=== PATIENT | male | born 1990 | race Caucasian/White ===

== ENCOUNTER 2017-09-17 16:30 | Emergency (ER) | payer MEDICAID ==
[2017-09-17] MEDS ORDERED: IBUPROFEN 800 MG TABLET PO STA (17:18)
--- NOTE | 2017-09-17 17:18 | ED Physician Documentation ---
PD HPI LOWER EXT INJURY - Stated complaint Stated Complaint: R ANKLE SWELLING - Chief complaint Chief Complaint: Ext Problem - History obtained from History obtained from: Patient - History of Present Illness PD HPI LOW EXT INJURY LOCATION: Right (Increasing right ankle pain, swelling, and redness for the last 2-3 days without specific injury, although he does note he stepped on a nail maybe 3 weeks ago. No fevers.) Review of Systems Constitutional: denies: Fever, Chills Ears: denies: Loss of hearing, Ear pain Nose: reports: Reviewed and negative Cardiac: reports: Reviewed and negative PD PAST MEDICAL HISTORY - Past Medical History Psych: Depression, Anxiety, ADD/ADHD - Past Surgical History Past Surgical History: No - Present Medications Home Medications: Ambulatory Orders Medication Instructions Recorded Confirmed Dextroamphetamine/Amphetamine 30 mg PO TID 09/22/15 09/22/15 [Adderall 30 mg Tablet] Cephalexin [Keflex] 500 mg PO QID #40 capsule 09/17/17 - Allergies Allergies/Adverse Reactions: Allergies Allergy/AdvReac Type Severity Reaction Status Date / Time No Known Drug Allergies Allergy Verified 09/17/17 16:34 - Social History Does the pt smoke?: Yes Smoking Status: Current every day smoker Does the pt drink ETOH?: No Does the pt have substance abuse?: No - POLST Patient has POLST: No PD ED PE NORMAL - Vitals Vital signs reviewed: Yes - General General: Alert and oriented X 3, No acute distress - Extremities Extremities: Other (He has cellulitis over the anterolateral right ankle, extending down to about the mortise and may be up for 5 cm from there. He does have pain with range of motion of the ankle, but not severe or consistent with septic joint. There is no redness or cellulitis of the bottom of the foot.) - Neuro Neuro: Alert and oriented X 3, Normal speech - Psych Psych: Normal mood, Normal affect Results - Vitals Vitals: Vital Signs - 24 hr 09/17/17 16:32 Temperature 36.2 C L Heart Rate 98 Respiratory 18 Rate Blood Pressure 125/71 O2 Saturation 100 Oxygen O2 Source Room air - Labs Labs: Laboratory Tests 09/17/17 09/17/17 17:30 17:30 WBC 9.9 RBC 4.53 L Hgb 13.5 L Hct 40.7 L MCV 89.9 MCH 29.8 MCHC 33.1 RDW 13.1 Plt Count 249 MPV 7.8 Neut # 7.2 H Lymph # 1.2 L [place] # 1.3 H Eos # 0.1 Baso # 0.1 Absolute Nucleated RBC 0.00 Nucleated RBC % 0.0 Sodium 134 L Potassium 4.2 Chloride 100 L Carbon Dioxide 27 Anion Gap 7.0 BUN 16 Creatinine 0.9 Estimated GFR (MDRD) 100 Glucose 95 Uric Acid 4.4 Calcium 8.8 Total Bilirubin 0.9 AST 20 ALT 25 Alkaline Phosphatase 87 C-Reactive Protein 1.0 Total Protein 7.7 Albumin 4.5 Globulin 3.2 Albumin/Globulin Ratio 1.4 Lipase < 10 L PD MEDICAL DECISION MAKING - ED course ED course: It appears to be simple right ankle cellulitis, gout is considered but his uric acid is low normal. Does not seem like a septic joint at this point. Departure - Departure Disposition: 01 Home, Self Care Clinical Impression: Cellulitis Qualifiers: Site of cellulitis: extremity Site of cellulitis of extremity: lower extremity Laterality: right Qualified Code(s): L03.115 - Cellulitis of right lower limb Condition: Good Record reviewed to determine appropriate education?: Yes Instructions: Cellulitis Dc Prescriptions: Cephalexin [Keflex] 500 mg PO QID #40 capsule Comments: Call your doctor to arrange a follow-up appointment, make the next available appointment. In the interim, return anytime if worse or if new symptoms develop.
[2017-09-17 17:42] LABS: BASOPHILS # (AUTO) 0.1 10^3/uL (0.0-0.1); BASOPHILS % (AUTO) 0.7 %; EOSINOPHILS # (AUTO) 0.1 10^3/uL (0.0-0.7); HGB - HEMOGLOBIN 13.5 g/dL (14.0-18.0); LYMPHOCYTES # (AUTO) 1.2 10^3/uL (1.5-3.5); MEAN CORPUSCULAR HEMOGLOBIN 29.8 pg (27.0-31.0); MEAN CORPUSCULAR HGB CONC 33.1 g/dL (32.0-36.0); MEAN CORPUSCULAR VOLUME 89.9 fL (80.0-94.0); MEAN PLATELET VOLUME 7.8 fL (7.4-11.4); MONOCYTES # (AUTO) 1.3 10^3/uL (0.0-1.0); MONOCYTES % (AUTO) 13.4 %; NEUTROPHILS # (AUTO) 7.2 10^3/uL (1.5-6.6); NEUTROPHILS % (AUTO) 72.9 %; PLT - PLATELET COUNT 249 10^3/uL (130-450); RED BLOOD COUNT 4.53 10^6/uL (4.70-6.10); RED CELL DISTRIBUTION WIDTH 13.1 % (12.0-15.0); WHITE BLOOD COUNT 9.9 x10^3/uL (4.8-10.8)
[2017-09-17 17:58] LABS: ALBUMIN 4.5 g/dL (3.2-5.5); ALBUMIN/GLOBULIN RATIO 1.4 (1.0-2.2); ALKALINE PHOSPHATASE 87 IU/L (42-121); ALT ALANINE AMINOTRANSFERASE 25 IU/L (10-60); AST ASPARTATE AMINOTRANSFERASE 20 IU/L (10-42); BILIRUBIN,TOTAL 0.9 mg/dL (0.2-1.0); BUN - BLOOD UREA NITROGEN 16 mg/dL (6-20); CALCIUM 8.8 mg/dL (8.5-10.3); CARBON DIOXIDE - CO2 27 mmol/L (21-32); CHLORIDE 100 mmol/L (101-111); CREATININE 0.9 mg/dL (0.6-1.2); GFR - MDRD 100 (>89); GLUCOSE 95 mg/dL (70-100); SODIUM 134 mmol/L (135-145); TOTAL PROTEIN 7.7 g/dL (6.7-8.2); URIC ACID 4.4 mg/dL (2.6-7.2)
[2017-09-17 18:00] LABS: LIPASE < 10 U/L (22-51)
[2017-09-17] MEDS ORDERED: ceFAZolin 1 GM VIAL IM STA (18:03)
[2017-09-17] MEDS ORDERED: WATER FOR INJECTION,STERILE 10 ML ONE (18:22)
[2017-09-17 18:24] VITALS: BP 112/65
== END 2017-09-17 18:30 | disposition home or self-care (01) ==
LOC: ED 16:30
DX: L03.115 Cellulitis of right lower limb (principal); F17.200 Nicotine dependence, unspecified, uncomplicated
CPT/HCPCS: 36415; 80053; 83690; 84550; 85025; 85651; 86140; 96372; 99283; A9270

== ENCOUNTER 2017-10-31 11:49 | Emergency (ER) | payer MEDICAID ==
[2017-10-31 12:13] LABS: BASOPHILS % (AUTO) 0.8 %; EOSINOPHILS # (AUTO) 0.1 10^3/uL (0.0-0.7); EOSINOPHILS % (AUTO) 2.2 %; HGB - HEMOGLOBIN 14.8 g/dL (14.0-18.0); LYMPHOCYTES # (AUTO) 0.9 10^3/uL (1.5-3.5); LYMPHOCYTES % (AUTO) 21.6 %; MEAN CORPUSCULAR HEMOGLOBIN 30.3 pg (27.0-31.0); MEAN CORPUSCULAR HGB CONC 34.2 g/dL (32.0-36.0); MEAN CORPUSCULAR VOLUME 88.7 fL (80.0-94.0); MEAN PLATELET VOLUME 7.9 fL (7.4-11.4); MONOCYTES % (AUTO) 22.7 %; NEUTROPHILS # (AUTO) 2.2 10^3/uL (1.5-6.6); NEUTROPHILS % (AUTO) 52.7 %; PLT - PLATELET COUNT 275 10^3/uL (130-450); RED BLOOD COUNT 4.88 10^6/uL (4.70-6.10); RED CELL DISTRIBUTION WIDTH 13.3 % (12.0-15.0); WHITE BLOOD COUNT 4.3 x10^3/uL (4.8-10.8)
[2017-10-31 12:25] LABS: ALBUMIN 4.2 g/dL (3.2-5.5); ALBUMIN/GLOBULIN RATIO 1.3 (1.0-2.2); BILIRUBIN,TOTAL 0.8 mg/dL (0.2-1.0); CREATININE 0.9 mg/dL (0.6-1.2); TOTAL PROTEIN 7.5 g/dL (6.7-8.2)
[2017-10-31 12:46] LABS: GLUCOSE, URINE (UA) NEGATIVE (NEGATIVE); KETONES,URINE (UA) TRACE mg/dL (NEGATIVE); LEUKOCYTE ESTERASE, URINE NEGATIVE (NEGATIVE); NITRITE,URINE NEGATIVE (NEGATIVE); OCCULT BLOOD,URINE NEGATIVE (NEGATIVE); PROTEIN,URINE NEGATIVE (NEGATIVE); UROBILINOGEN,URINE 1 (NORMAL) E.U./dL (NORMAL)
[2017-10-31 12:50] LABS: CLARITY,URINE CLEAR (CLEAR)
[2017-10-31 12:52] LABS: BILIRUBIN,URINE NEGATIVE (NEGATIVE); ICTOTEST,URINE NEGATIVE
[2017-10-31] MEDS ORDERED: MAG HYDROX/AL HYDROX/SIMETH 30 ML UDC PO STA (13:01)
[2017-10-31] MEDS ORDERED: SODIUM CHLORIDE 0.9% 1,000 ML IV ONE (13:01)
[2017-10-31] MEDS ORDERED: LIDOCAINE VISCOUS 2% 15 ML UDC MM STA (13:01)
--- NOTE | 2017-10-31 13:04 | ED Physician Documentation ---
PD HPI ABD PAIN - Stated complaint Stated Complaint: ABD PX - Chief complaint Chief Complaint: Abd Pain - History obtained from History obtained from: Patient - History of Present Illness Timing - onset: How many days ago (55) Timing - duration: Days (5) Timing - details: Abrupt onset, Still present, Waxing and waning Quality: Sharp, Fullness/distended, Pain Location: LUQ Improved by: Laying still Worsened by: Eating, Breathing, Position, Palpation Associated symptoms: Nausea, Vomiting, Diarrhea Similar symptoms before: Has not had sx before Recently seen: Emergency Dept - Additional information Additional information: 27-year-old previously well male who has recently been treated for cellulitis has developed acute left upper quadrant abdominal pain with some nausea about 5 days ago. He does acknowledge taking ibuprofen and taking this on an empty stomach as well. He describes the sensation as a feeling of fullness in the abdomen and pressure and not like he is full from eating. He has had some flow- through diarrhea with eating as well. Review of Systems Constitutional: denies: Fever Eyes: denies: Decreased vision Ears: denies: Ear pain Nose: reports: Rhinorrhea / runny nose, Congestion Throat: denies: Sore throat Cardiac: denies: Chest pain / pressure, Palpitations Respiratory: reports: Cough. denies: Dyspnea GI: reports: Abdominal Pain, Nausea, Vomiting, Diarrhea : denies: Dysuria, Frequency Skin: denies: Rash, Lesions Musculoskeletal: denies: Neck pain, Back pain, Extremity pain Neurologic: denies: Generalized weakness, Focal weakness, Numbness PD PAST MEDICAL HISTORY - Past Medical History Past Medical History: Yes Psych: Depression, Anxiety, ADD/ADHD - Past Surgical History Past Surgical History: No Ortho: ACL reconstruction - Present Medications Home Medications: Ambulatory Orders Medication Instructions Recorded Confirmed Dextroamphetamine/Amphetamine 30 mg PO TID 09/22/15 09/22/15 [Adderall 30 mg Tablet] Sucralfate [Carafate] 1 gm PO ACHS #30 tablet 10/31/17 - Allergies Allergies/Adverse Reactions: Allergies Allergy/AdvReac Type Severity Reaction Status Date / Time No Known Drug Allergies Allergy Verified 10/31/17 11:55 - Social History Does the pt smoke?: Yes Smoking Status: Current every day smoker Does the pt drink ETOH?: No Does the pt have substance abuse?: No - Immunizations Immunizations are current?: Yes - POLST Patient has POLST: No PD ED PE NORMAL - Vitals Vital signs reviewed: Yes (normal ) - General General: Alert and oriented X 3, No acute distress, Well developed/nourished - HEENT HEENT: Atraumatic, PERRL, EOMI - Neck Neck: Supple, no meningeal sign, No bony TTP - Cardiac Cardiac: RRR, No murmur - Respiratory Respiratory: No respiratory distress, Clear bilaterally - Abdomen Abdomen: Soft, Other (mild left upper quadrant tenderness without guarding or rebound. ) - Back Back: No CVA TTP, No spinal TTP - Derm Derm: Normal color, Warm and dry, No rash - Extremities Extremities: No deformity, No edema - Neuro Neuro: No motor deficit, No sensory deficit Eye Opening: Spontaneous Motor: Obeys Commands Verbal: Oriented GCS Score: 15 - Psych Psych: Normal mood, Normal affect Results - Vitals Vitals: Vital Signs - 24 hr 10/31/17 11:51 Temperature 36.4 C L Heart Rate 94 Respiratory 16 Rate Blood Pressure 128/70 O2 Saturation 99 Oxygen O2 Source Room air - Labs Labs: Laboratory Tests 10/31/17 10/31/17 10/31/17 12:06 12:06 12:40 WBC 4.3 L RBC 4.88 Hgb 14.8 Hct 43.3 MCV 88.7 MCH 30.3 MCHC 34.2 RDW 13.3 Plt Count 275 MPV 7.9 Neut # 2.2 Lymph # 0.9 L [place] # 1.0 Eos # 0.1 Baso # 0.0 Absolute Nucleated RBC 0.00 Nucleated RBC % 0.0 Sodium 137 Potassium 3.5 Chloride 100 L Carbon Dioxide 29 Anion Gap 8.0 BUN 12 Creatinine 0.9 Estimated GFR (MDRD) 100 Glucose 84 Calcium 9.0 Total Bilirubin 0.8 AST 37 ALT 27 Alkaline Phosphatase 78 Total Protein 7.5 Albumin 4.2 Globulin 3.3 Albumin/Globulin Ratio 1.3 Lipase 15 L Urine Color DARK YELLOW Urine Clarity CLEAR Urine pH 6.0 Ur Specific [place] 1.020 Urine Protein NEGATIVE Urine Glucose (UA) NEGATIVE Urine Ketones TRACE Urine Occult Blood NEGATIVE Urine Nitrite NEGATIVE Urine Bilirubin NEGATIVE Urine Urobilinogen 1 (NORMAL) Ur Leukocyte Esterase NEGATIVE Ur Microscopic Review NOT INDICATED Urine Culture Comments NOT INDICATED Procedures - IVC sono (time) 1300 Bedside IVC sono: IVC measures (cm) (1.24), IVC collapsed c insp (cm) (complete) , Dehydration (est 1 liter deficit) PD MEDICAL DECISION MAKING - ED course Complexity details: reviewed old records, reviewed results, re-evaluated patient , considered differential, d/w patient, d/w family ED course: 27-year-old male with left upper quadrant abdominal pain likely has gastritis. He has taken ibuprofen on an empty stomach and he has typical pain from this. The patient has relief of his pain with the use of viscous lidocaine and Mylanta. IV saline is given for dehydration as well as Protonix. We will treat him for gastritis. Departure - Departure Disposition: Home, Self Care Clinical Impression: Gastritis Qualifiers: Gastritis type: unspecified gastritis Chronicity: acute Gastritis bleeding: without bleeding Qualified Code(s): K29.00 - Acute gastritis without bleeding Condition: Stable Instructions: ED PUD Vs Gastritis Follow-Up: Robyn Moser ARNP [Primary Care Provider] - Prescriptions: Sucralfate [Carafate] 1 gm PO ACHS #30 tablet Comments: Today it appears your abdominal pain is related to gastritis or an inflammation of the stomach. This is likely due to the use of ibuprofen. Discontinue the use of ibuprofen or alcohol and start Pepcid AC or Tagamet on a regular basis for about 10 days. In addition take the Carafate regularly for the next week.
[2017-10-31] MEDS ORDERED: PANTOPRAZOLE 40 MG VIAL IVP STA (13:26)
[2017-10-31 13:57] VITALS: BP 132/78
== END 2017-10-31 13:57 | disposition home or self-care (01) ==
LOC: ED 11:49
DX: K29.00 Acute gastritis without bleeding (principal); E86.0 Dehydration; F17.200 Nicotine dependence, unspecified, uncomplicated
CPT/HCPCS: 36415; 80053; 81003; 83690; 85025; 96374; 99283; 99284; A9270; 81001; 87086

== ENCOUNTER 2018-04-21 16:09 | Emergency (ER) | payer MEDICAID ==
[2018-04-21 16:16] VITALS: BP 125/71
--- NOTE | 2018-04-21 17:05 | XRAY Report ---
Reason: fall, previous injury Procedure Date: 04/21/2018 Accession Number: [id number] / [id number] Procedure: XR - Knee 3 View LT CPT Code: FULL RESULT: EXAM: LEFT KNEE RADIOGRAPHY EXAM DATE: 04/21/2018 04:39 PM. CLINICAL HISTORY: Fall, previous injury. COMPARISON: None. TECHNIQUE: 3 views. FINDINGS: Bones: Normal. No fractures or bone lesions. Joints: Suprapatellar effusion. Slight lateral patellar tilt. Otherwise normal alignment. Soft Tissues: Normal. No soft tissue swelling. IMPRESSION: 1. No acute bony abnormality. 2. Small suprapatellar effusion. RADIA
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
== END 2018-04-21 17:45 | disposition home or self-care (01) ==
LOC: ED 16:09
DX: S83.92XA Sprain of unspecified site of left knee, initial encounter (principal); F17.200 Nicotine dependence, unspecified, uncomplicated; W10.9XXA Fall (on) (from) unspecified stairs and steps, initial encounter; X50.0XXA Overexertion from strenuous movement or load, initial encounter; X50.1XXA Overexertion from prolonged static or awkward postures, initial encounter
CPT/HCPCS: 99282; 99283

== ENCOUNTER 2019-01-24 19:44 | Outpatient (CLI) | payer OTHER, MEDICAID | END 2019-01-24 19:45 | disposition critical access hospital (66) | LOC: EMS 19:44 | PROVIDERS: ATTEND Surgery | DX: S81.012A Laceration without foreign body, left knee, initial encounter (principal); S09.90XA Unspecified injury of head, initial encounter; V43.53XA Car driver injured in collision with pick-up truck in traffic accident, initial encounter; Y92.410 Unspecified street and highway as the place of occurrence of the external cause | CPT/HCPCS: A0425; A0429; A0999 ==

== ENCOUNTER 2019-01-24 20:08 | Emergency (ER) | payer OTHER, MEDICAID ==
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
[2019-01-24] MEDS ORDERED: IBUPROFEN 600 MG TABLET PO STA (20:33)
[2019-01-24] MEDS ORDERED: ACETAMINOPHEN 325 MG TABLET PO STA (20:34)
[2019-01-24] MEDS ORDERED: LIDOCAINE-EPINEPH-TETRACAINE 3 ML SYRINGE TOP STA (20:34)
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
[2019-01-24 22:03] VITALS: BP 130/70
== END 2019-01-24 22:08 | disposition home or self-care (01) ==
LOC: EDUNIT# → ED 20:08
DX: S81.011A Laceration without foreign body, right knee, initial encounter (principal); S80.00XA Contusion of unspecified knee, initial encounter; S00.81XA Abrasion of other part of head, initial encounter; V43.52XA Car driver injured in collision with other type car in traffic accident, initial encounter; W22.11XA Striking against or struck by driver side automobile airbag, initial encounter; Y92.410 Unspecified street and highway as the place of occurrence of the external cause; F17.200 Nicotine dependence, unspecified, uncomplicated
CPT/HCPCS: 12002; 73562; 99283; 99284; A9270

== ENCOUNTER 2020-03-03 08:00 | Outpatient (CLI) | payer MEDICAID, OTHER | END 2020-03-03 23:59 | disposition home or self-care (01) | LOC: LAB.R 08:00 | PROVIDERS: ATTEND Registered Nurse | DX: Z20.2 Contact with and (suspected) exposure to infections with a predominantly sexual mode of transmission (principal) | CPT/HCPCS: 81599; 87491; 87591 ==

== ENCOUNTER 2023-05-25 15:00 | Outpatient (CLI) | payer MEDICAID, OTHER ==
[2023-05-27 07:10] LABS: HSV 2 IGG TYPE SPEC <0.91 index (0.00-0.90)
== END 2023-05-25 15:15 | disposition home or self-care (01) ==
LOC: LAB.N 15:00
PROVIDERS: ATTEND Physician Assistant Medical
DX: R21 Rash and other nonspecific skin eruption (principal)
CPT/HCPCS: 36415; 86695; 86696; 87255

== ENCOUNTER 2023-12-06 23:31 | Emergency (ER) | payer MEDICAID ==
[2023-12-07] MEDS: lidocaine 1% 20 ML MDV SUBQ ONE (01:13)
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
[2023-12-07] MEDS: BACITRACIN ZINC OINT 1 PACKET TOP STA (01:39)
[2023-12-07] MEDS: HYDROcod/ACETAM 5/325 MG TABLET PO STA (01:40)
[2023-12-07] MEDS: SULFAMETH/TRIMETH DS 800/160 MG TABLET PO STA (01:40)
[2023-12-07 01:45] VITALS: BP 133/82; O2SAT 99
== END 2023-12-07 01:44 | disposition home or self-care (01) ==
LOC: ED 23:31
DX: S71.112A Laceration without foreign body, left thigh, initial encounter (principal); W26.0XXA Contact with knife, initial encounter; Y99.0 Civilian activity done for income or pay; F17.200 Nicotine dependence, unspecified, uncomplicated
CPT/HCPCS: 12001; 99283; A9270